=== PATIENT | male | born 1995 | race Caucasian/White ===

== ENCOUNTER 2019-04-30 09:11 | Emergency (ER) | payer OTHER ==
[~2019-04-30] VITALS: Ht 167.6 cm; Wt 77.3 kg
[2019-04-30 09:18] VITALS: BP_DIAS 71
[2019-04-30 10:58] VITALS: BP_SYST 132
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
[2019-05-01] MEDS ORDERED: ONDA4TAB6 PO (11:12)
[2019-05-01] MEDS ORDERED: KETO10TAB PO (11:12)
[2019-05-01] MEDS ORDERED: CYCL5TAB PO (11:12)
== END 2019-04-30 10:59 | disposition home or self-care (01) ==
LOC: M ED 09:11
DX: S00.03XA Contusion of scalp, initial encounter (principal); S39.012A Strain of muscle, fascia and tendon of lower back, initial encounter; V49.40XA Driver injured in collision with unspecified motor vehicles in traffic accident, initial encounter; Y92.410 Unspecified street and highway as the place of occurrence of the external cause

== ENCOUNTER 2019-05-01 10:06 | Emergency (ER) | payer OTHER ==
[~2019-05-01] VITALS: Ht 170.2 cm; Wt 77.3 kg
[2019-05-01 10:07] VITALS: BP 136/63
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
[2019-05-01] MEDS ORDERED: KETOROLAC TROMETHAMINE 10 MG TAB PO ONE (10:45)
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
[2019-05-01] MEDS ORDERED: ONDA4TAB6 PO (11:12)
[2019-05-01] MEDS ORDERED: CYCL5TAB PO (11:12)
[2019-05-01] MEDS ORDERED: KETO10TAB PO (11:12)
== END 2019-05-01 11:20 | disposition home or self-care (01) ==
LOC: M ED 10:06
DX: S06.0X0D Concussion without loss of consciousness, subsequent encounter (principal); S13.4XXD Sprain of ligaments of cervical spine, subsequent encounter; V49.40XD Driver injured in collision with unspecified motor vehicles in traffic accident, subsequent encounter; Z79.899 Other long term (current) drug therapy

== ENCOUNTER 2019-08-29 11:53 | Emergency (ER) | payer OTHER ==
[~2019-08-29] VITALS: Ht 167.6 cm; Wt 78.6 kg
[~2019-08-29 11:53] MED LIST: CYCL5TAB PO; KETO10TAB PO; ONDA4TAB6 PO
[2019-08-29 13:37] LABS: HEPATITIS B SURFACE ANTIBODY POSITIVE (POSITIVE); HEPATITIS B SURFACE ANTIGEN NEGATIVE (NEGATIVE); HEPATITIS C VIRUS ABY INDEX < 0.0 INDEX (<0.8)
[2019-08-29] MEDS ORDERED: LIDOCAINE 1% SDV 5 ML VIAL DILUENT ONE (14:00)
[2019-08-29] MEDS ORDERED: cefTRIAXone SOD 250 MG VIAL (J0696) IM ONE (14:00)
[2019-08-29] MEDS ORDERED: AZITHROMYCIN 250 MG TAB PO ONE (14:00)
[2019-08-29 14:35] LABS: CHLAMYDIA DNA AMPLIFICATION POSITIVE (NEGATIVE); GC DNA AMPLIFICATION NEGATIVE (NEGATIVE)
[2019-08-29 14:44] VITALS: BP 134/65
== END 2019-08-29 14:45 | disposition home or self-care (01) ==
LOC: M ED 11:53
DX: Z20.2 Contact with and (suspected) exposure to infections with a predominantly sexual mode of transmission (principal)
CPT/HCPCS: 86706; 86780; 86803; 87340; 87661; 96372; 99283; J0696

== ENCOUNTER 2019-10-15 13:58 | Emergency (ER) | payer OTHER ==
[~2019-10-15] VITALS: Ht 170.2 cm; Wt 77.8 kg
[2019-10-15] MEDS ORDERED: cefTRIAXone SOD 250 MG VIAL (J0696) IM ONE (15:30)
[2019-10-15] MEDS ORDERED: AZITHROMYCIN 250 MG TAB PO ONE (15:30)
[2019-10-15] MEDS ORDERED: LIDOCAINE 1% SDV 5 ML VIAL DILUENT ONE (15:30)
[2019-10-15 15:55] VITALS: BP 118/76
[2019-10-15 17:02] LABS: CHLAMYDIA DNA AMPLIFICATION NEGATIVE (NEGATIVE); GC DNA AMPLIFICATION NEGATIVE (NEGATIVE)
[2019-10-16 09:52] LABS: HEPATITIS B SURFACE ANTIGEN NEGATIVE (NEGATIVE); HEPATITIS C VIRUS ABY INDEX < 0.0 INDEX (<0.8); HIV 1&2 SCREEN CENTAUR NEGATIVE (NEGATIVE)
[2019-10-17 12:43] LABS: HEPATITIS B SURFACE ANTIBODY POSITIVE (POSITIVE)
== END 2019-10-15 15:59 | disposition home or self-care (01) ==
LOC: M ED 13:58
DX: Z20.2 Contact with and (suspected) exposure to infections with a predominantly sexual mode of transmission (principal); F17.210 Nicotine dependence, cigarettes, uncomplicated
CPT/HCPCS: 81001; 86706; 86780; 86803; 87340; 87389; 87491; 87591; 96372; 99283; J0696

== ENCOUNTER 2020-03-23 10:56 | Emergency (ER) | payer OTHER | END 2020-03-23 11:45 | disposition left against medical advice (07) | LOC: M ED 10:56 | DX: B34.9 Viral infection, unspecified (principal); R05 Cough | CPT/HCPCS: 99283; U0003 ==

== ENCOUNTER 2020-04-11 18:45 | Emergency (ER) | payer OTHER ==
[~2020-04-11] VITALS: Ht 170.2 cm; Wt 82.2 kg
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
[2020-04-11] MEDS ORDERED: ACETAMINOPHEN 325 MG TAB PO ONE (20:15)
[2020-04-11] MEDS ORDERED: NAPROXEN 250 MG TAB PO ONE (20:15)
[2020-04-11] MEDS ORDERED: NAPR-837 PO (20:17)
[2020-04-11 20:20] VITALS: BP 134/82
== END 2020-04-11 20:44 | disposition home or self-care (01) ==
LOC: M ED 18:45
DX: S46.002A Unspecified injury of muscle(s) and tendon(s) of the rotator cuff of left shoulder, initial encounter (principal); X50.0XXA Overexertion from strenuous movement or load, initial encounter; Y92.39 Other specified sports and athletic area as the place of occurrence of the external cause; Y93.B3 Activity, free weights

== ENCOUNTER 2020-07-12 19:19 | Emergency (ER) | payer OTHER ==
[~2020-07-12] VITALS: Ht 170.2 cm; Wt 79.1 kg
[~2020-07-12 19:19] MED LIST changes: +NAPR-837 PO
[2020-07-12 19:20] VITALS: BP 141/73
[2020-07-12] MEDS ORDERED: LIDOCAINE 1% SDV 5ML VIAL DILUENT ONE (20:00)
[2020-07-12] MEDS ORDERED: cefTRIAXone SOD 250MG VIAL (J0696 PER 250MG) IM ONE (20:00)
[2020-07-12] MEDS ORDERED: AZITHROMYCIN 250MG TABLET PO ONE (20:00)
[2020-07-12 20:02] LABS: APPEARANCE, URINE CLEAR (CLEAR); BACTERIA, URINE AUTO NEGATIVE (NEGATIVE); BILIRUBIN, URINE AUTO NEGATIVE (NEGATIVE); BLOOD, URINE BLOOD NEGATIVE (NEGATIVE); COLOR, URINE YELLOW (YELLOW); GLUCOSE, URINE (UA) AUTO NEGATIVE (NEGATIVE); KETONE, URINE AUTO NEGATIVE (NEGATIVE); LEUKOCYTE ESTERASE, URINE AUTO NEGATIVE (NEGATIVE); MUCUS, URINE SMALL (NEGATIVE); NITRITE, URINE AUTO NEGATIVE (NEGATIVE); PROTEIN, URINE AUTO NEGATIVE (NEGATIVE); RBC, URINE AUTO 2 /HPF (0-3); SPECIFIC GRAVITY URINE AUTO 1.023 (1.002-1.035); SQUAMOUS EPITHELIAL CELL UR AU 0 /HPF (0-6); UROBILINOGEN, URINE AUTO 0.2 mg/dL (0.0-2.0); WBC, URINE AUTO 1 /HPF (0-3)
[2020-07-12 21:10] LABS: CHLAMYDIA DNA AMPLIFICATION POSITIVE (NEGATIVE); GC DNA AMPLIFICATION NEGATIVE (NEGATIVE)
[2020-07-14 11:31] LABS: HEPATITIS B SURFACE ANTIBODY POSITIVE (POSITIVE); HEPATITIS B SURFACE ANTIGEN NEGATIVE (NEGATIVE); HEPATITIS C VIRUS ABY INDEX < 0.0 INDEX (<0.8)
== END 2020-07-12 20:27 | disposition home or self-care (01) ==
LOC: M ED 19:19
DX: Z20.2 Contact with and (suspected) exposure to infections with a predominantly sexual mode of transmission (principal); F17.200 Nicotine dependence, unspecified, uncomplicated; Z86.19 Personal history of other infectious and parasitic diseases
CPT/HCPCS: 36415; 81001; 86706; 86780; 86803; 87340; 87661; 96372; 99282; J0696

== ENCOUNTER 2020-11-02 15:07 | Emergency (ER) | payer OTHER ==
[~2020-11-02] VITALS: Ht 170.2 cm; Wt 79.7 kg
[2020-11-02 15:07] VITALS: BP 143/74
[2020-11-02] MEDS ORDERED: NAPROXEN 250 MG TAB PO ONE (16:45)
[2020-11-02] MEDS: ALBUTEROL 90 MCG/ACT 8GM HFA INHALER INH SCH ×3 (17:08→17:52)
--- NOTE | 2020-11-02 17:08 | REP ---
INDICATION: SOB COMPARISON: None. TECHNIQUE: Portable AP view of the chest FINDINGS: The mediastinum and cardiac silhouette are within normal limits for portable technique. The lung buchanan are clear without acute consolidation, effusion, or pneumothorax. Skeletal structures are intact. IMPRESSION: No acute cardiopulmonary process appreciated. <Electronically signed by Taz Sanabria > 11/02/20 [id number]
[2020-11-02] MEDS ORDERED: PROAAER10 INH (18:24)
[2020-11-02] MEDS ORDERED: NAPR-837 PO (18:24)
== END 2020-11-02 18:44 | disposition home or self-care (01) ==
LOC: M ED 15:07
DX: R51.9 Headache, unspecified (principal); R06.02 Shortness of breath; R09.81 Nasal congestion; R43.9 Unspecified disturbances of smell and taste; Z20.822 Contact with and (suspected) exposure to COVID-19
CPT/HCPCS: 71045; 87804; 94640; 99283; U0003